=== PATIENT | female | born 1970 | race Caucasian/White ===

== ENCOUNTER 2024-11-27 01:55 | Emergency (ER) | payer OTHER ==
[~2024-11-27] VITALS: Ht 162.6 cm; Wt 66.0 kg
[2024-11-27 01:57] VITALS: O2SAT 98
[2024-11-27] MEDS: KETOROLAC 15MG/ML VIAL IM ONE (03:08)
[2024-11-27] MEDS: LIDOCAINE 5% PATCH TOP SCH (03:15)
[2024-11-27] MEDS ORDERED: LIDO-53 TP (04:34)
[2024-11-27] MEDS ORDERED: NAPR-1176 MT (04:34)
[2024-11-27 05:07] VITALS: BP 129/85; PULSE 82; RESP 18; TEMP 36.5; O2SAT 98
== END 2024-11-27 05:29 | disposition home or self-care (01) ==
LOC: ER 01:55
DX: S20.219A Contusion of unspecified front wall of thorax, initial encounter (principal); V89.2XXA Person injured in unspecified motor-vehicle accident, traffic, initial encounter; Y93.89 Activity, other specified; Y92.410 Unspecified street and highway as the place of occurrence of the external cause; Y99.8 Other external cause status
CPT/HCPCS: 71250; 96372; 99285; J1885; Z7610 ×3; A4606